=== PATIENT | female | born 1995 | race Caucasian/White ===

== ENCOUNTER 2017-04-08 10:00 | Emergency (ER) | payer OTHER ==
[2017-04-08 10:26] VITALS: BP 125/62
--- NOTE | 2017-04-08 12:30 | ED Physician Documentation ---
History of Present Illness - Stated complaint Stated Complaint: LEFT FINGER INJ - Chief complaint Chief Complaint: Ext Problem - Additonal information Additional information: Patient is a left-hand dominant female who punched a wall last night and now complains of pain to the left second metacarpal phalangeal joint and left proximal portion of her index finger. Pain is worse with movement and better with rest. She is noticed mild soft tissue swelling. She denies any other hand wrist or elbow complaint. 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 Review of systems: For pertinent positive and negatives in the review of systems please see the history of present illness, otherwise all other systems have been reviewed and are negative. Dragon disclaimer: Parts of this medical record were created using voice recognition technology. Because of the inherent limitations of this system, occasional same sounding word substitutions do occur and persist despite proofreading. Please read the document for context. Review of Systems Musculoskeletal: reports: Extremity pain, Joint pain, Extremity swelling, Joint swelling. denies: Neck pain, Back pain PD PAST MEDICAL HISTORY - Past Medical History Past Medical History: No Psych: Bipolar disorder - Past Surgical History Past Surgical History: Yes HEENT: Tonsil/Adenoidectomy - Present Medications Home Medications: Ambulatory Orders Medication Instructions Recorded Confirmed Epinephrine [Epipen 2-Farhad] 0.3 mg IJ .FREQ 04/08/17 04/08/17 Ibuprofen 600 mg PO TID PRN #14 tablet 04/08/17 - Allergies Allergies/Adverse Reactions: Allergies Allergy/AdvReac Type Severity Reaction Status Date / Time bee pollen Allergy Anaphylaxis Verified 04/08/17 10:07 - Social History Does the pt smoke?: No Smoking Status: Current some day smoker Does the pt drink ETOH?: Yes Does the pt have substance abuse?: No - Immunizations Immunizations are current?: Yes PD ED PE NORMAL - Vitals Vital signs reviewed: Yes - General General: Alert and oriented X 3, No acute distress, Well developed/nourished - Extremities Extremities: Other (Mild soft tissue swelling of the proximal phalanx second finger. Rare very superficial abrasions without fight bite noted, range of motion and tenderness strength tested and normal) Results - Vitals Vitals: Vital Signs - 24 hr 04/08/17 10:04 Temperature 36.3 C L Heart Rate 81 Respiratory 16 Rate Blood Pressure 125/62 O2 Saturation 99 Oxygen O2 Source Room air PD MEDICAL DECISION MAKING - ED course Complexity details: d/w patient ED course: Patient is a 21-year-old [id number] female who struck her left hand against a wall last night she complains of mild pain and has tenderness left metacarpophalangeal joint and also the proximal phalanx of the second finger. X -rays were taken and there is no evidence of bony fracture or dislocation which fits clinical examination. This point I think she can be safely discharged home Disposition to home Clinical impression: 1. Left hand contusion with left second finger proximal phalanx contusion Departure - Departure Disposition: Home, Self Care Clinical Impression: Contusion of finger of left hand Qualifiers: Encounter type: initial encounter Finger: index finger Damage to nail status: without damage Qualified Code(s): S60.022A - Contusion of left index finger without damage to nail, initial encounter Condition: Good Instructions: ED Sprain Hand Prescriptions: Ibuprofen 600 mg PO TID PRN #14 tablet PRN Reason: Pain
--- NOTE | 2017-04-08 13:10 | XRAY Preliminary Report ---
Exam: XR Hand 3 View LT IMPRESSION: No fracture [facility] SITE ID: [id number]
--- NOTE | 2017-04-08 13:13 | XRAY Report ---
EXAM: LEFT HAND RADIOGRAPHY EXAM DATE: 04/08/2017 12:20 PM. CLINICAL HISTORY: Punch injury, pain at fourth and fifth left PIP joints. COMPARISON: None. TECHNIQUE: 3 views. FINDINGS: Bones: Normal. No fractures or bone lesions. Joints: Joint spaces and alignment are normal Soft Tissues: Unremarkable IMPRESSION: No fracture [facility] Referring Provider Line: [phone] SITE ID: [id number]
== END 2017-04-08 12:48 | disposition home or self-care (01) ==
LOC: ED 10:00
DX: S60.022A Contusion of left index finger without damage to nail, initial encounter (principal); W22.8XXA Striking against or struck by other objects, initial encounter; F17.200 Nicotine dependence, unspecified, uncomplicated
CPT/HCPCS: 99282; 99283

== ENCOUNTER 2017-11-15 18:57 | Outpatient (CLI) | payer OTHER ==
--- NOTE | 2017-11-17 15:54 | Ultrasound Report ---
EARLY OB ULTRASOUND: 11/15/2017 COMPARISON: No comparison. INDICATION: Dating exam. TECHNIQUE: Real-time scanning of the uterus, single IUP, was performed with congressional representative static images obtained. LAST MENSTRUAL PERIOD 08/20/2017 Clinical Age 12 weeks 3 days US Age 10 weeks 3 days EFW Hadlock -- EFW% Hadlock -- Heart Rate 184 bpm EDC 05/27/2018 US EDC 06/10/2018 BPD Hadlock -- HC Hadlock -- AC Hadlock -- FL Hadlock -- Presentation -- Placental Location posterior Cervical Length closed Amniotic Fluid -- FINDINGS Posterior placenta. Normal morphology of the gestational sac and yolk sac. Normal appearance of the ovaries with normal-appearing blood flow. Right corpus luteal cyst. No free fluid. Cervix appears closed. IMPRESSION 1. SINGLE VIABLE INTRAUTERINE WITH ESTIMATED GESTATIONAL AGE 10 WEEKS 3 DAYS, ESTABLISHED BY CRL. 2. RECOMMEND ANATOMY SCREEN AT 20 WEEKS. TD: 11/16/2017 10:23 [facility]
== END 2017-11-15 18:58 | disposition home or self-care (01) ==
LOC: DI 18:57
DX: O26.841 Uterine size-date discrepancy, first trimester (principal)
CPT/HCPCS: 76801; 76817

== ENCOUNTER 2018-05-02 22:50 | Outpatient (CLI) | payer OTHER, MEDICAID ==
--- NOTE | 2018-05-03 01:37 | Ultrasound Report ---
Reason: SIZE DATES AND POSITION Procedure Date: 05/02/2018 Accession Number: [id number] / [id number] Procedure: US - OB Limited CPT Code: FULL RESULT: EXAM: LIMITED OBSTETRICAL ULTRASOUND EXAM DATE: 05/02/2018 11:13 PM. CLINICAL HISTORY: SIZE DATES AND POSITION. COMPARISON: 11/15/2009 first trimester OB ultrasound. TECHNIQUE: Real-time sonographic evaluation of the fetus performed by the piano machine operator. Multiple technical sales representative static images were saved for review. Additional transvaginal imaging to more accurately evaluate cervical length/placental position/etc. DATING: Established EGA 36 weeks 3 days with VENANCIO 05/27/2018 based on LMP. EGA 34 weeks 3 days for VENANCIO 06/10/2018 based on initial ultrasound.. GENERAL EVALUATION Lawson . Cardiac activity: 138 bpm. movement: Cephalic Presentation: Cephalic. Placenta: Posterior position. Amniotic fluid: Normal. ROBERTA 8.6 cm. MVP 2.5 cm. biometry: BPD 8.5 cm, 34 weeks and 1 days HC: 29.6 cm, 32 weeks 4 days A.C.: 29.3 cm, 33 weeks 1 day FL: 6 cm, 31 weeks 0 days EFW 2017 g or 2.7 percentile. IMPRESSION: 1. Lawson live intrauterine in cephalic lie with gestational age 31 weeks 5 days based on today's ultrasound. VENANCIO 06/29/2018. 2. Age based on initial ultrasound 34 weeks 3 days and LMP 36 weeks 3 days. MEMO The call report notification system was initiated by Dr. Shane Murphy at 01:14 hrs on 05/03/18. The above findings were discussed with Kaitlin Carrington by Dr. Shane Murphy at 01:35 hrs on 05/03/18.
== END 2018-05-02 22:51 | disposition home or self-care (01) ==
LOC: DI 22:50
PROVIDERS: ATTEND Midwife
DX: Z34.03 Encounter for supervision of normal first pregnancy, third trimester (principal)
CPT/HCPCS: 76815

== ENCOUNTER 2018-06-06 09:51 | Outpatient (CLI) | payer MEDICAID | END 2018-06-06 09:52 | disposition short-term general hospital (02) | LOC: EMS 09:51 | PROVIDERS: ATTEND Surgery | DX: O72.0 Third-stage hemorrhage (principal) | CPT/HCPCS: A0425; A0427; A0888; A0999 ==